=== PATIENT | male | born 1960 | race American Indian/Alaskan Native ===

== ENCOUNTER 2018-02-01 08:07 | Emergency (ER) | payer SELFPAY ==
[2018-02-01 08:57] VITALS: BP 128/89
[2018-02-01] MEDS ORDERED: TORADOL IM ONE (09:59)
--- NOTE | 2018-02-01 10:04 | Emergency Department Report ---
ED ENT HPI - General Chief complaint: Dental/Oral Stated complaint: RT SIDE TOOTH PAIN Time Seen by Provider: 02/01/18 09:53 Source: patient Mode of arrival: Ambulatory Limitations: No Limitations - History of Present Illness Initial comments: This is a 57-year-old -[place] male who presents with a broken tooth that is causing pain in right side facial swelling for 3 days. Patient states his tooth on the right upper side broke 7 years ago and is now causing pain. Patient reports pain is 10 out of 10 on pain scale and worse with eating or cold air. Patient reports pain is constant throbbing sensation. He is currently taking ibuprofen and applied oragel with no improvement in symptoms. He denies difficulty swallowing, tongue swelling, drooling, fever, and chest pain. MD complaint: tooth pain Onset/Timin -: days(s) Location: tooth # (#2) Severity: severe (#2) Severity scale (0 -10): 10 Quality: constant, other (throbbing) Consistency: constant Improves with: none Worsens with: eating, other (cold air) Context- Dental: history of dental caries, poor dental care Associated Symptoms: gum swelling, toothache. denies: fever, cough, pain with swallowing, sore throat, tinnitus, hearing loss, discharge from ear, rhinorrhea - Related Data Previous Rx's Medication Instructions Recorded Last Taken Type Clindamycin [Clindamycin CAP] 300 mg PO Q8H #21 cap 02/01/18 Unknown Rx Naproxen [Naprosyn] 500 mg PO BID #14 tablet 02/01/18 Unknown Rx Allergies Allergy/AdvReac Type Severity Reaction Status Date / Time acetaminophen [From Percocet] Allergy Hives Verified 02/01/18 08:58 oxycodone [From Percocet] Allergy Hives Verified 02/01/18 08:58 ED Dental HPI - General Chief complaint: Dental/Oral Stated complaint: RT SIDE TOOTH PAIN Time Seen by Provider: 02/01/18 09:53 Source: patient Mode of arrival: Ambulatory Limitations: No Limitations - Related Data Previous Rx's Medication Instructions Recorded Last Taken Type Clindamycin [Clindamycin CAP] 300 mg PO Q8H #21 cap 02/01/18 Unknown Rx Naproxen [Naprosyn] 500 mg PO BID #14 tablet 02/01/18 Unknown Rx Allergies Allergy/AdvReac Type Severity Reaction Status Date / Time acetaminophen [From Percocet] Allergy Hives Verified 02/01/18 08:58 oxycodone [From Percocet] Allergy Hives Verified 02/01/18 08:58 ED Review of Systems ROS: Stated complaint: RT SIDE TOOTH PAIN Other details as noted in HPI Constitutional: denies: chills, fever ENT: dental pain, other (right sided facial pain). denies: ear pain, throat pain, hearing loss, epistaxis, congestion Respiratory: denies: cough, shortness of breath, wheezing Cardiovascular: denies: chest pain, palpitations Gastrointestinal: denies: abdominal pain, nausea, diarrhea Skin: denies: rash, lesions Neurological: denies: headache, weakness, paresthesias Psychiatric: denies: anxiety, depression ED Past Medical Hx - Past Medical History Previous Medical History?: No - Surgical History Past Surgical History?: No - Social History Smoking Status: Current Every Day Smoker Substance Use Type: Alcohol - Medications Home Medications: Home Medications Medication Instructions Recorded Confirmed Last Taken Type Clindamycin [Clindamycin CAP] 300 mg PO Q8H #21 cap 02/01/18 Unknown Rx Naproxen [Naprosyn] 500 mg PO BID #14 tablet 02/01/18 Unknown Rx ED Physical Exam - General Limitations: No Limitations General appearance: alert, in no apparent distress - ENT ENT exam: Present: mucous membranes moist, other (dental caries and partial avulsion of #2, surrounded mucosal swelling, tenderness) - Neck Neck exam: Present: normal inspection - Respiratory Respiratory exam: Present: normal lung sounds bilaterally. Absent: respiratory distress - Cardiovascular Cardiovascular Exam: Present: regular rate, normal rhythm. Absent: systolic murmur, diastolic murmur, rubs, gallop - GI/Abdominal GI/Abdominal exam: Present: soft, normal bowel sounds - Neurological Exam Neurological exam: Present: alert, oriented X3 - Psychiatric Psychiatric exam: Present: normal affect, normal mood - Skin Skin exam: Present: warm, dry, intact, normal color, other (right sided facial swelling). Absent: rash ED Course Vital Signs 02/01/18 08:53 Temperature 99.5 F Pulse Rate 98 H Respiratory 18 Rate Blood Pressure 128/89 O2 Sat by Pulse 98 Oximetry ED Medical Decision Making - Medical Decision Making This is a 57-year-old male that presents with toothache and right side facial swelling for 3 days. Patient is stable and was examined by me. Given Toradol 30 mg IM once in ER. Susceptible of dental caries with avulsion to #2. Start clindamycin and naproxen. Referral to emergency dental for continuous care. Discussed plan with patient. He agreed with ER plan. Follow up with dentist in 24-48 hours. Critical care attestation.: If time is entered above; I have spent that time in minutes in the direct care of this critically ill patient, excluding procedure time. ED Disposition Clinical Impression: Dental caries, Toothache Avulsion fracture of tooth Qualifiers: Encounter type: initial encounter Fracture type: open Qualified Code(s): S02.5XXB - Fracture of tooth (traumatic), initial encounter for open fracture Disposition: TO HOME OR SELFCARE Is pt being admited?: No Does the pt Need Aspirin: No Condition: Stable Instructions: Toothache (ED), Acute dental trauma (ED) Additional Instructions: Complete all days of clindamycin as prescribed for 14 days. Avoid drinking alcohol while taking antibiotics and for up to 24 hours of completion. Follow up with Dentist in 24-72 hours. Prescriptions: Clindamycin [Clindamycin CAP] 300 mg PO Q8H #21 cap Naproxen [Naprosyn] 500 mg PO BID #14 tablet Referrals: [facility] [Outside] - 3-5 Days [facility] [Outside] - 3-5 Days [facility] [Outside] - 3-5 Days Forms: Work/School Release Form(ED) Time of Disposition: 10:11 Print Language: PRYDEINIG
== END 2018-02-01 10:37 | disposition home or self-care (01) ==
LOC: ED 08:07
DX: S02.5XXB Fracture of tooth (traumatic), initial encounter for open fracture (principal); K02.9 Dental caries, unspecified; F17.200 Nicotine dependence, unspecified, uncomplicated; Z88.6 Allergy status to analgesic agent; Z88.5 Allergy status to narcotic agent; X58.XXXA Exposure to other specified factors, initial encounter; Y93.89 Activity, other specified; Y92.89 Other specified places as the place of occurrence of the external cause; Y99.8 Other external cause status
CPT/HCPCS: 96372; 99282; J1885

== ENCOUNTER 2018-05-16 15:04 | Inpatient (IN) | payer OTHER, SELFPAY ==
[2018-05-16] MEDS ORDERED: NACL 0.9% 1000 ML 1,000 ML IV ONE (15:18)
[2018-05-16 15:59] LABS: INR 0.89 (0.87-1.13)
[2018-05-16 16:00] LABS: Partial Thromboplastin Time 25.4 Sec. (24.2-36.6)
[2018-05-16 16:07] LABS: Alanine Aminotransferase 14 units/L (7-56); Albumin 3.6 g/dL (3.9-5); BUN/Creatinine Ratio 21; Blood Urea Nitrogen 15 mg/dL (9-20); Hemolysis Index 4
[2018-05-16 16:09] LABS: Hematocrit 35.9 % (35.5-45.6); Hemoglobin 12.1 gm/dl (11.8-15.2); Mean Corpuscular HGB Conc 34 % (32-34); Mean Corpuscular Volume 95 fl (84-94); Platelet Count 141 K/mm3 (140-440); Red Blood Count 3.79 M/mm3 (3.65-5.03); Red Cell Distribution Width 15.2 % (13.2-15.2)
[2018-05-16 17:02] LABS: Band Neutrophils # (Manual) 0.5 K/mm3; Basophils % (Manual) 0 % (0.0-1.8); Eosinophils % (Manual) 0 % (0.0-4.3); Total Cells Counted 100
[2018-05-16 17:48] LABS: Anisocytosis 1+; Hypochromasia 1+; Platelet Estimate Appears Decreased
[2018-05-16 17:49] LABS: Stomatocytes Few
[2018-05-16] MEDS ORDERED: TYLENOL PO ONE (21:23)
--- NOTE | 2018-05-16 21:28 | Emergency Department Report ---
ED Chest Pain HPI - General Chief Complaint: GI Bleed Stated Complaint: BLEEDING FROM THROAT Time Seen by Provider: 05/16/18 21:08 Source: patient Mode of arrival: Ambulatory Limitations: No Limitations - History of Present Illness Initial Comments: 57-year-old male presents to ED with complaint of left-sided chest pain and hemoptysis. Patient states symptoms began 4 days ago. Also reports fever as well. Reports pleuritic left-sided chest pain. Reports cough that is productive of clear sputum with streaks of blood in it. PCP: none MD Complaint: chest pain -: days(s) (4) Onset: during rest Pain Location: left chest Pain Radiation: none Severity: mild Quality: sharp Consistency: intermittent Improves With: nothing Worsens With: inspiration re: denies: nausea, vomting, dyspnea Other Symptoms: cough, fever. denies: leg swelling - Related Data Previous Rx's Medication Instructions Recorded Last Taken Type Clindamycin [Clindamycin CAP] 300 mg PO Q8H #21 cap 02/01/18 Unknown Rx Amoxicillin/Potassium Clav 1 each PO BID #14 tablet 04/11/18 Unknown Rx [Augmentin 500-125 Tablet] Fluticasone [Flonase] 1 spray NS QDAY #1 bottle 04/11/18 Unknown Rx Naproxen [Naprosyn] 500 mg PO BID #14 tablet 04/11/18 Unknown Rx Allergies Allergy/AdvReac Type Severity Reaction Status Date / Time oxycodone [From Percocet] Allergy Hives Verified 04/11/18 09:57 Heart Score - HEART Score History: Slightly suspicious EKG: Normal Age: 45-65 Risk factors: No known risk factors Troponin: < normal limit HEART Score: 1 ED Review of Systems ROS: Stated complaint: BLEEDING FROM THROAT Other details as noted in HPI Comment: All other systems reviewed and negative Constitutional: fever Respiratory: cough, other (reports hemoptysis) Cardiovascular: chest pain Gastrointestinal: denies: nausea, vomiting Musculoskeletal: other (denies leg pain or swelling) ED Past Medical Hx - Past Medical History Previous Medical History?: No - Surgical History Past Surgical History?: No - Social History Smoking Status: Never Smoker Substance Use Type: None - Medications Home Medications: Home Medications Medication Instructions Recorded Confirmed Last Taken Type Clindamycin [Clindamycin CAP] 300 mg PO Q8H #21 cap 02/01/18 Unknown Rx Amoxicillin/Potassium Clav 1 each PO BID #14 tablet 04/11/18 Unknown Rx [Augmentin 500-125 Tablet] Fluticasone [Flonase] 1 spray NS QDAY #1 bottle 04/11/18 Unknown Rx Naproxen [Naprosyn] 500 mg PO BID #14 tablet 04/11/18 Unknown Rx ED Physical Exam - General Limitations: No Limitations General appearance: alert, in no apparent distress - Head Head exam: Present: atraumatic, normocephalic - Eye Eye exam: Present: normal appearance - ENT ENT exam: Present: mucous membranes moist - Neck Neck exam: Present: normal inspection - Respiratory Respiratory exam: Present: rales (left lung base). Absent: respiratory distress - Cardiovascular Cardiovascular Exam: Present: regular rate, normal rhythm - GI/Abdominal GI/Abdominal exam: Present: soft. Absent: distended, tenderness - Extremities Exam Extremities exam: Absent: pedal edema, calf tenderness - Neurological Exam Neurological exam: Present: alert, oriented X3 - Psychiatric Psychiatric exam: Present: normal affect, normal mood - Skin Skin exam: Present: warm, dry, intact, normal color. Absent: rash ED Course Vital Signs 05/16/18 05/16/18 05/16/18 15:12 22:00 23:37 Temperature 101.3 F H 100.1 F H Pulse Rate 99 H 72 78 Respiratory 18 18 18 Rate Blood Pressure 144/89 Blood Pressure 142/84 122/78 [Left] O2 Sat by Pulse 100 98 99 Oximetry ED Medical Decision Making - Lab Data Result diagrams: 05/16/18 15:29 05/16/18 15:29 - EKG Data -: EKG Interpreted by [facility] EKG shows normal: sinus rhythm, axis, intervals, QRS complexes, ST-T waves Rate: normal - EKG Data Interpretation: no acute changes - Radiology Data Radiology results: report reviewed, image reviewed - Medical Decision Making 57-year-old male with left lower lobe pneumonia on chest x-ray. She had a fever of 101 here in ED, O2 sats normal, blood pressure normal. Patient reports hemoptysis and pleuritic chest pain. Pain meds given, blood cultures drawn and Rocephin and azithromycin administered. Spoke with Dr. Greer, hospitalist, will admit the patient. - Differential Diagnosis pneumonia, PE, pneumothorax Critical care attestation.: If time is entered above; I have spent that time in minutes in the direct care of this critically ill patient, excluding procedure time. ED Disposition Clinical Impression: Pneumonia, Hemoptysis Disposition: 09 OP ADMIT IP TO THIS HOSP Is pt being admited?: Yes Condition: Stable Time of Disposition: 22:15
--- NOTE | 2018-05-16 21:59 | XRay Report ---
FINAL REPORT PROCEDURE: XR CHEST ROUTINE 2V TECHNIQUE: PA and lateral chest radiographs were obtained. CPT 92717 HISTORY: cough COMPARISON: No prior studies are available for comparison. FINDINGS: Heart: Normal. Mediastinum/Vessels: Normal. Lungs/Pleural space: There is evidence of consolidation involving the left lower lobe. Right lung and right pleural space are clear. There is mild degree left pleural effusion.. Bony thorax: No acute osseous abnormality. Other: IMPRESSION: Pneumonia left lower lobe with minimal left pleural effusion..
[2018-05-16] MEDS ORDERED: ROCEPHIN/NS 1 GM/50 ML 1 GM/50 ML BAG IV ONE (22:01)
[2018-05-16] MEDS ORDERED: TORADOL IV ONE (22:02)
[2018-05-16] MEDS ORDERED: ZITHROMAX PO ONE (22:02)
[2018-05-16] MEDS ORDERED: TYLENOL PO PRN (22:32)
[2018-05-16] MEDS ORDERED: PERCOCET 5/325 PO PRN (22:32)
[2018-05-16] MEDS ORDERED: ZOFRAN IV PRN (22:32)
[2018-05-16] MEDS ORDERED: SODIUM CHLORIDE FLUSH SYRINGE 10 ML IV PRN (22:32)
--- NOTE | 2018-05-16 22:40 | History and Physical Report ---
History of Present Illness Date of examination: 05/16/18 History of present illness: 58-year-old man with no medical problems comes emergency room complaining of left side pleuritic chest pain. He also complained of a cough productive of white phlegm intermixed with blood, chills. No weight loss Review of systems Constitutional: no weight loss, fever Ears, eyes, nose, mouth and throat: no nasal congestion, no nasal discharge, no sinus pressure, no vision change, no red eye. Neck: No neck pain or rigidity. Cardiovascular: no palpitations, chest pain Respiratory:+ cough, shortness of breath Gastrointestinal: no hematochezia, abdominal pain Genitourinary : no frequency , no hematuria Musculoskeletal: no joint swelling or muscle ache Integumentary: no rash, no pruritis Neurological: no parathesias, no focal weakness Endocrine: no cold or heat intolerance, no polyuria or polydipsia Hematologic/Lymphatic: no easy bruising, no easy bleeding, no gland swelling Allergic/Immunologic: no urticaria, no angioedema. PAST MEDICAL HISTORY: None PAST SURGICAL HISTORY: None SOCIAL HISTORY: Denies alcohol, drugs,smoke 1/2 pack /day FAMILY HISTORY: Hypertension Medications and Allergies Allergies Allergy/AdvReac Type Severity Reaction Status Date / Time oxycodone [From Percocet] Allergy Hives Verified 04/11/18 09:57 Home Medications Medication Instructions Recorded Confirmed Last Taken Type Oseltamivir Phosphate [Tamiflu] 75 mg PO BID #4 capsule 05/20/18 Unknown Rx RX: Acetaminophen [Acetaminophen 650 mg PO Q4H PRN #15 tablet 05/20/18 Unknown Rx TAB] cefUROXime [Ceftin] 500 mg PO BID #10 tablet 05/20/18 Unknown Rx Exam - Physical Exam Narrative exam: General Apperance: The patient lying in bed, breathing comfortable HEENT: Normocephalic, atraumatic. Pupils equally round and reactive to light, EOMI, no sclericterus or JVD or thyromegaly or nodule. , no carotid bruit, mucous membranes moist, no exudate or erythema Heart: S1-S2, regular is rhythm Lungs: Crackles on the left, breathing comfortable Abdomen: Positive bowel sounds, soft, nontender, nondistended, no organomegaly Extremities: No edema cyanosis clubbing Skin: sacral and lower extremity ulcers, no rash, nodule, warm and dry Neuro: cranial nerves 2-12 intact, speech is fluent, motor/sensory intact - Constitutional Vitals: Temp Pulse Resp BP Pulse Ox 101.3 F H 72 18 142/84 98 05/16/18 15:12 05/16/18 22:00 05/16/18 22:00 05/16/18 22:00 05/16/18 22:00 Results - Labs CBC & Chem 7: 05/20/18 04:57 05/20/18 04:57 Labs: Abnormal lab results 05/16/18 05/16/18 Range/Units 15:29 15:29 MCV 95 H (84-94) fl Lymphocytes % (Manual) 12.0 L (13.4-35.0) % Monocytes % (Manual) 16.0 H (0.0-7.3) % Lymphocytes # (Manual) 0.8 L (1.2-5.4) K/mm3 Monocytes # (Manual) 1.1 H (0.0-0.8) K/mm3 Creatinine 0.7 L (0.8-1.5) mg/dL Albumin 3.6 L (3.9-5) g/dL - Imaging and Cardiology EKG: image reviewed Chest x-ray: image reviewed Assessment and Plan Assessment Community-acquired pneumonia Elevated blood pressure Plan Admit to medicine Start IV Levaquin, follow cultures Monitor blood pressure, start IV hydralazine as needed DVT prophylaxis
[2018-05-16] MEDS ORDERED: APRESOLINE IV PRN (22:44)
[2018-05-16] MEDS ORDERED: TORADOL ONE (23:15)
[2018-05-16] MEDS ORDERED: NACL 0.45% 1000 ML 1,000 ML IV ONE (23:15)
[2018-05-16] MEDS ORDERED: ZITHROMAX ONE (23:16)
[2018-05-16] MEDS: NACL 0.45% 1000 ML 1,000 ML IV SCH (23:36)
[2018-05-17 06:35] LABS: Hematocrit 36.8 % (35.5-45.6); Hemoglobin 12.1 gm/dl (11.8-15.2); Mean Corpuscular HGB Conc 33 % (32-34); Mean Corpuscular Volume 95 fl (84-94); Platelet Count 125 K/mm3 (140-440); Red Blood Count 3.89 M/mm3 (3.65-5.03)
[2018-05-17 06:57] LABS: BUN/Creatinine Ratio 19; Blood Urea Nitrogen 13 mg/dL (9-20); Calcium 8.2 mg/dL (8.4-10.2); Hemolysis Index 7
[2018-05-17] MEDS: SODIUM CHLORIDE FLUSH SYRINGE 10 ML IV SCH ×2 (09:37→22:05)
[2018-05-17] MEDS ORDERED: K-DUR PO NR (09:52)
--- NOTE | 2018-05-17 09:53 | Progress Note ---
Assessment and Plan Assessment and plan: 57-year-old man with no medical problems comes emergency room complaining of left side pleuritic chest pain. He also complained of a cough productive of white phlegm intermixed with blood, chills. No weight loss Community-acquired pneumonia Elevated blood pressure Left pleural effusion Sepsis Hemoptysis Atypical chest pain secondary to Pleurisy Plan Supportive Care Pain control Replace K Hycodan for cough suppression and pain control Continue IV Levaquin, follow cultures ID consult Monitor blood pressure, start IV hydralazine as needed DVT prophylaxis Plan discussed with the patient in detail - Patient Problems (1) Sepsis Current Visit: Yes Status: Acute (2) Hypokalemia Current Visit: Yes Status: Acute History Interval history: Patient seen and examined resting comfortable. still with pleuritic chest pain. Admitted with Pneumonia. No other adverse event reported Hospitalist Physical - Physical exam Narrative exam: General Apperance: The patient lying in bed, breathing comfortable HEENT: Normocephalic, atraumatic. Pupils equally round and reactive to light, EOMI, no sclericterus or JVD or thyromegaly or nodule. , no carotid bruit, mucous membranes moist, no exudate or erythema Heart: S1-S2, regular is rhythm Lungs: Crackles on the left, breathing comfortable Abdomen: Positive bowel sounds, soft, nontender, nondistended, no organomegaly Extremities: No edema cyanosis clubbing Skin: sacral and lower extremity ulcers, no rash, nodule, warm and dry. Tender to palpation mid chest Neuro: cranial nerves 2-12 intact, speech is fluent, motor/sensory intact - Constitutional Vitals: Temp Pulse Resp BP Pulse Ox 98.6 F 70 18 137/90 97 05/17/18 04:44 05/17/18 04:44 05/17/18 04:44 05/17/18 04:44 05/17/18 04:44 Results - Labs CBC & Chem 7: 05/17/18 06:07 05/17/18 06:07 Labs: Laboratory Last Values WBC 7.0 K/mm3 (4.5-11.0) 05/17/18 06:07 RBC 3.89 M/mm3 (3.65-5.03) 05/17/18 06:07 Hgb 12.1 gm/dl (11.8-15.2) 05/17/18 06:07 Hct 36.8 % (35.5-45.6) 05/17/18 06:07 MCV 95 fl (84-94) H 05/17/18 06:07 MCH 31 pg (28-32) 05/17/18 06:07 MCHC 33 % (32-34) 05/17/18 06:07 RDW 15.0 % (13.2-15.2) 05/17/18 06:07 Plt Count 125 K/mm3 (140-440) L 05/17/18 06:07 [place] % (Auto) Press Operator 05/17/18 06:07 Add Manual Diff Complete 05/16/18 15:29 Total Counted 100 05/16/18 15:29 Seg Neuts % (Manual) 64.0 % (40.0-70.0) 05/16/18 15:29 Band Neutrophils % 7.0 % 05/16/18 15:29 Lymphocytes % (Manual) 12.0 % (13.4-35.0) L 05/16/18 15:29 Reactive Lymphs % (Man) 1.0 % 05/16/18 15:29 Monocytes % (Manual) 16.0 % (0.0-7.3) H 05/16/18 15:29 Eosinophils % (Manual) 0 % (0.0-4.3) 05/16/18 15:29 Basophils % (Manual) 0 % (0.0-1.8) 05/16/18 15:29 Metamyelocytes % 0 % 05/16/18 15:29 Myelocytes % 0 % 05/16/18 15:29 Promyelocytes % 0 % 05/16/18 15:29 Blast Cells % 0 % 05/16/18 15:29 Nucleated RBC % Not Reportable 05/16/18 15:29 Seg Neutrophils # Man 4.5 K/mm3 (1.8-7.7) 05/16/18 15:29 Band Neutrophils # 0.5 K/mm3 05/16/18 15:29 Lymphocytes # (Manual) 0.8 K/mm3 (1.2-5.4) L 05/16/18 15:29 Abs React Lymphs (Man) 0.1 K/mm3 05/16/18 15:29 Monocytes # (Manual) 1.1 K/mm3 (0.0-0.8) H 05/16/18 15:29 Eosinophils # (Manual) 0.0 K/mm3 (0.0-0.4) 05/16/18 15:29 Basophils # (Manual) 0.0 K/mm3 (0.0-0.1) 05/16/18 15:29 Metamyelocytes # 0.0 K/mm3 05/16/18 15:29 Myelocytes # 0.0 K/mm3 05/16/18 15:29 Promyelocytes # 0.0 K/mm3 05/16/18 15:29 Blast Cells # 0.0 K/mm3 05/16/18 15:29 WBC Morphology Not Reportable 05/16/18 15:29 Hypersegmented Neuts Not Reportable 05/16/18 15:29 Hyposegmented Neuts Not Reportable 05/16/18 15:29 Hypogranular Neuts Not Reportable 05/16/18 15:29 Smudge Cells Not Reportable 05/16/18 15:29 Toxic Granulation Not Reportable 05/16/18 15:29 Toxic Vacuolation Not Reportable 05/16/18 15:29 Dohle Bodies Not Reportable 05/16/18 15:29 Pelger-Huet Anomaly Not Reportable 05/16/18 15:29 Matilda Rods Not Reportable 05/16/18 15:29 Platelet Estimate Appears decreased 05/16/18 15:29 Clumped Platelets Not Reportable 05/16/18 15:29 Plt Clumps, EDTA Not Reportable 05/16/18 15:29 Large Platelets Not Reportable 05/16/18 15:29 Giant Platelets Not Reportable 05/16/18 15:29 Platelet Satelliting Not Reportable 05/16/18 15:29 Plt Morphology Comment Not Reportable 05/16/18 15:29 RBC Morphology Not Reportable 05/16/18 15:29 Dimorphic RBCs Not Reportable 05/16/18 15:29 Polychromasia Not Reportable 05/16/18 15:29 Hypochromasia 1+ 05/16/18 15:29 Poikilocytosis Not Reportable 05/16/18 15:29 Anisocytosis 1+ 05/16/18 15:29 Microcytosis 1+ 05/16/18 15:29 Macrocytosis Not Reportable 05/16/18 15:29 Spherocytes Not Reportable 05/16/18 15:29 Pappenheimer Bodies Not Reportable 05/16/18 15:29 Sickle Cells Not Reportable 05/16/18 15:29 Target Cells Not Reportable 05/16/18 15:29 Tear Drop Cells Not Reportable 05/16/18 15:29 Ovalocytes Not Reportable 05/16/18 15:29 Stomatocytes Few 05/16/18 15:29 Helmet Cells Not Reportable 05/16/18 15:29 [place] Bodies Not Reportable 05/16/18 15:29 [place] Rings Not Reportable 05/16/18 15:29 [place] Cells Not Reportable 05/16/18 15:29 Bite Cells Not Reportable 05/16/18 15:29 Crenated Cell Not Reportable 05/16/18 15:29 Elliptocytes Not Reportable 05/16/18 15:29 Acanthocytes (Spur) Not Reportable 05/16/18 15:29 Rouleaux Not Reportable 05/16/18 15:29 Hemoglobin C Crystals Not Reportable 05/16/18 15:29 Schistocytes Not Reportable 05/16/18 15:29 Malaria parasites Not Reportable 05/16/18 15:29 Eliu Bodies Not Reportable 05/16/18 15:29 Hem Pathologist Commnt No 05/16/18 15:29 PT 12.4 Sec. (12.2-14.9) 05/16/18 15:29 INR 0.89 (0.87-1.13) 05/16/18 15:29 APTT 25.4 Sec. (24.2-36.6) 05/16/18 15:29 Sodium 135 mmol/L (137-145) L 05/17/18 06:07 Potassium 3.3 mmol/L (3.6-5.0) L D 05/17/18 06:07 Chloride 97.8 mmol/L (98-107) L 05/17/18 06:07 Carbon Dioxide 26 mmol/L (22-30) 05/17/18 06:07 Anion Gap 15 mmol/L 05/17/18 06:07 BUN 13 mg/dL (9-20) 05/17/18 06:07 Creatinine 0.7 mg/dL (0.8-1.5) L 05/17/18 06:07 Estimated GFR > 60 ml/min 05/17/18 06:07 BUN/Creatinine Ratio 19 % 05/17/18 06:07 Glucose 97 mg/dL (75-100) 05/17/18 06:07 Calcium 8.2 mg/dL (8.4-10.2) L 05/17/18 06:07 Total Bilirubin 0.70 mg/dL (0.1-1.2) 05/16/18 15:29 AST 20 units/L (5-40) 05/16/18 15:29 ALT 14 units/L (7-56) 05/16/18 15:29 Alkaline Phosphatase 66 units/L (35-129) 05/16/18 15:29 Total Protein 6.9 g/dL (6.3-8.2) 05/16/18 15:29 Albumin 3.6 g/dL (3.9-5) L 05/16/18 15:29 Albumin/Globulin Ratio 1.1 % 05/16/18 15:29 Lipase 28 units/L (13-60) 05/16/18 15:29 Blood Type O POSITIVE 05/16/18 15:29 Antibody Screen Negative 05/16/18 15:29 - Imaging and Cardiology Chest x-ray: image reviewed (lower lobe infiltrates of the left)
[2018-05-17] MEDS ORDERED: LEVAQUIN 750MG/150ML 750 MG/150 ML BAG IV SCH (10:00)
[2018-05-17 10:33] LABS: Band Neutrophils # (Manual) 0.3 K/mm3; Basophils % (Manual) 0 % (0.0-1.8); Eosinophils % (Manual) 0 % (0.0-4.3); Total Cells Counted 100
[2018-05-17 10:34] LABS: Hypochromasia 1+
[2018-05-17 10:35] LABS: Platelet Estimate Consistent w Auto
--- NOTE | 2018-05-17 10:44 | Consultation ---
History of Present Illness - Reason for Consult Consult date: 05/17/18 Sepsis Requesting physician: RISHI RIOS - History of Present Illness This patient is a 57 year old male with a history of Nicotine dependence and no significant past medical history presents in the ER on 05/16/18 with complaints of left side pleuritic chest pain and productive cough productive of white phelgm and blood. He also complains of chill with no significant weight loss. On adm ission WBC 7.0, Creatinine 0.7, Highest temperature 101.3,, HR 115, BP 128/89, Blood cultures were drawn and are pending. Chest xray is consistent with pneumonia left lower lobe with minimal left pleural effusion. 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 He states this past Monday he started having GI upset with accompanying nausea and diarrhea,. He initially attributed his symptoms to ingesting multiple buffalo wings the night before, so he treated himself with OTC medications. The next day symptoms persisted with left sided chest pain, chills and hemoptysis. He admits to tobacco dep endence for 30+ years. He denies illegal drug or alcohol abuse. He is recently and tested negative for HIV 10 years ago. Review of Systems: General: no fever, chills, unintentional weight change, or change in appetite +nightsweats, Cutaneous: no rash, pruritus Head: no headaches or injury Eyes: no changes in vision, eye pain, double vision Ears: no ear pain, ear discharge, ringing or hearing loss Nose: no nose bleeding, stuffiness Mouth & throat: no bleeding gums, no horseness, no dental problems, or swollen glands Neck: no pain, node enlargement/lumps, tyroid enlargement or tenderness Respiratory: + cough, hemoptysis, pleuritic chest pain Cardiovascular: + left side chest pain, no leg edema, cyanosis, ESTRELLA, orthopnea Musculoskeletal: no decreased joint motion, bone or joint pain, joint swelling, muscle aches Gastrointestinal: no nausea, vomiting, + ,diarrhea, melena, times 4 days Genitourinary/Reproductive: frequent urination, no dysuria, hematuria, incontinence Neurogical: no seizures, no headaches, no weakness, no paresthesias, no loss of speech or vision Psychiatric: stable mood; no excessive anxiety, sadness or moodiness Medications and Allergies Allergies Allergy/AdvReac Type Severity Reaction Status Date / Time oxycodone [From Percocet] Allergy Hives Verified 04/11/18 09:57 Home Medications Medication Instructions Recorded Confirmed Last Taken Type Clindamycin [Clindamycin CAP] 300 mg PO Q8H #21 cap 02/01/18 Unknown Rx Amoxicillin/Potassium Clav 1 each PO BID #14 tablet 04/11/18 Unknown Rx [Augmentin 500-125 Tablet] Fluticasone [Flonase] 1 spray NS QDAY #1 bottle 04/11/18 Unknown Rx Naproxen [Naprosyn] 500 mg PO BID #14 tablet 04/11/18 Unknown Rx Active Meds: Active Medications Acetaminophen (Tylenol) 650 mg PO Q4H PRN PRN Reason: Pain MILD(1-3)/Fever >100.5/JULIEN Hydralazine HCl (Apresoline) 5 mg IV Q6H PRN PRN Reason: Hypertension Sodium Chloride (Nacl 0.45% 1000 Ml) 1,000 mls @ 75 mls/hr IV DIRECT [facility] Last Admin: 05/16/18 23:36 Dose: 75 mls/hr Documented by: Levofloxacin/Dextrose (Levaquin 750mg/150ml) 750 mg in 150 mls @ 100 mls/hr IV DAILY [facility] Last Admin: 05/17/18 09:36 Dose: 100 mls/hr Documented by: Ondansetron HCl (Zofran) 4 mg IV Q8H PRN PRN Reason: Nausea And Vomiting Potassium Chloride (K-Dur) 40 meq PO ONCE NR Stop: 05/17/18 11:00 Sodium Chloride (Sodium Chloride Flush Syringe 10 Ml) 10 ml IV BID [facility] Last Admin: 05/17/18 09:37 Dose: 10 ml Documented by: Sodium Chloride (Sodium Chloride Flush Syringe 10 Ml) 10 ml IV PRN PRN PRN Reason: LINE FLUSH Physical Examination - Physical Exam Narrative exam: Constitutional: Alert, cooperative. No acute distress Head, Ears, Nose: Normocephalic, atraumatic. External ears, nose normal Eyes: Conjunctivae/corneas clear. No icterus. No ptosis. Neck: Supple, no meningeal signs Oral: dentition good no thrush Cardiovascular: S1, S2 normal. Respiratory: Good air entry, clear to auscultation, diminished at left base GI: Soft, non-tender; bowel sounds normal. No peritoneal signs Gu: no CVA tenderness Musculoskeletal: No pedal edema, no cyanosis. Skin: No rash or abscess. or ulcerations, + Excoriation on back, Dry skin Hem/Lymphatic: No palpable cervical or supraclavicular nodes. No lymphangitis Psych: Mood ok. Affect normal Neurological: Awake, alert, oriented. - Constitutional Vitals: Vital Signs Temp Pulse Resp BP Pulse Ox 98.6 F 70 18 137/90 97 05/17/18 04:44 05/17/18 04:44 05/17/18 04:44 05/17/18 04:44 05/17/18 04:44 Temperature -Last 24 Hours Temperature 98.6 F Temperature 99.1 F Temperature 100.1 F Temperature 101.3 F Results - Labs CBC & Chem 7: 05/17/18 06:07 05/17/18 06:07 Labs: Abnormal lab results 05/16/18 05/16/18 05/17/18 Range/Units 15:29 15:29 06:07 MCV 95 H 95 H (84-94) fl Plt Count 125 L (140-440) K/mm3 Seg Neuts % (Manual) 73.0 H (40.0-70.0) % Lymphocytes % (Manual) 12.0 L 7.0 L (13.4-35.0) % Monocytes % (Manual) 16.0 H 16.0 H (0.0-7.3) % Lymphocytes # (Manual) 0.8 L 0.5 L (1.2-5.4) K/mm3 Monocytes # (Manual) 1.1 H 1.1 H (0.0-0.8) K/mm3 Sodium (137-145) mmol/L Potassium (3.6-5.0) mmol/L Chloride (98-107) mmol/L Creatinine 0.7 L (0.8-1.5) mg/dL Calcium (8.4-10.2) mg/dL Albumin 3.6 L (3.9-5) g/dL 05/17/18 Range/Units 06:07 MCV (84-94) fl Plt Count (140-440) K/mm3 Seg Neuts % (Manual) (40.0-70.0) % Lymphocytes % (Manual) (13.4-35.0) % Monocytes % (Manual) (0.0-7.3) % Lymphocytes # (Manual) (1.2-5.4) K/mm3 Monocytes # (Manual) (0.0-0.8) K/mm3 Sodium 135 L (137-145) mmol/L Potassium 3.3 L D (3.6-5.0) mmol/L Chloride 97.8 L (98-107) mmol/L Creatinine 0.7 L (0.8-1.5) mg/dL Calcium 8.2 L (8.4-10.2) mg/dL Albumin (3.9-5) g/dL Assessment and Plan Imagin05/16/2018 Chest Xray; Pneumonia left lower lobe with minimal left pleural effusion Cultures: 05/16/2018 Blood: In progress A/P: 57-year-old man with no significant past medical history, admitted with: 1. Sepsis - on admission, evidenced by temperature and tacycardia, Etiology most likely left lower lobe pneumonia, +/- Influenza, no luekocytosis Blood cultures are in progress. Currently being treated with Levofloxacin and Azithromycin. CRP 15.4, 2. Community Acquired Pneumonia- chest xray consistent with left lower lobe pneumonia with minimal left pleural effusion. Hemoptysis on admission. Sputum cultures ordered. 3. Nicotine Dependence-Counselled on nicotine cessation. 4. Diarrhea - reports 2 loose dark stools today. If diarrhea persists will order stool and C-diff cultures. Monitor closely. Plan: -f/u blood cultures -order influenza Rapid and PCR -Order sputum culture -start Cetriaxone and vancomycin -continue azithromycin -discontinue levofloxacin -start tamiflu until Influenza PCR results D/W Dr. Neftali Gabriel, [employer] [facility] M: [id number] O:[phone]
[2018-05-17] MEDS: NACL 0.45% 1000 ML 1,000 ML IV SCH (14:48)
[2018-05-17] MEDS ORDERED: VANCOMYCIN PHARMACY TO DOSE IV SCH (16:00)
[2018-05-17] MEDS ORDERED: HYDROMET PO PRN (16:20)
[2018-05-17] MEDS ORDERED: VANCOMYCIN 1,500 MG in NACL 0.9% 500 ML 500 ML IV ONE (17:00)
[2018-05-17] MEDS: ROCEPHIN/NS 2 GM/100 ML 2 GM/100 ML BAG IV SCH (17:43)
[2018-05-17] MEDS: ZITHROMAX PO SCH (17:43)
[2018-05-17] MEDS: TAMIFLU PO SCH ×2 (17:43→22:05)
[2018-05-18] MEDS: NACL 0.45% 1000 ML 1,000 ML IV SCH ×2 (03:40→20:22)
[2018-05-18] MEDS: VANCOMYCIN/NS 1 GM/250 ML 1 GM/250 ML BAG IV SCH ×3 (03:46→20:17)
[2018-05-18 05:07] LABS: Hematocrit 35.2 % (35.5-45.6); Hemoglobin 11.7 gm/dl (11.8-15.2); Mean Corpuscular HGB Conc 33 % (32-34); Mean Corpuscular Volume 95 fl (84-94); Platelet Count 169 K/mm3 (140-440); Red Blood Count 3.71 M/mm3 (3.65-5.03); Red Cell Distribution Width 15.1 % (13.2-15.2)
[2018-05-18 05:27] LABS: BUN/Creatinine Ratio 14; Blood Urea Nitrogen 10 mg/dL (9-20); Calcium 8.3 mg/dL (8.4-10.2); Hemolysis Index 9
[2018-05-18] MEDS: ROCEPHIN/NS 2 GM/100 ML 2 GM/100 ML BAG IV SCH (09:38)
[2018-05-18] MEDS: ZITHROMAX PO SCH (09:38)
[2018-05-18] MEDS: TAMIFLU PO SCH ×2 (09:38→22:07)
[2018-05-18] MEDS: SODIUM CHLORIDE FLUSH SYRINGE 10 ML IV SCH ×2 (10:00→22:07)
--- NOTE | 2018-05-18 14:52 | Progress Note ---
Assessment and Plan Imagin05/16/2018 Chest Xray; Pneumonia left lower lobe with minimal left pleural effusion Cultures: 05/16/2018 Blood: In progress A/P: 57-year-old man with no significant past medical history, admitted with: 1. Sepsis - on admission, evidenced by temperature and tacycardia, Etiology most likely left lower lobe pneumonia, +/- Influenza, no luekocytosis Blood cul tures are in progress. Currently being treated with Levofloxacin and Azithromycin. CRP 15.4, 2. Community Acquired Pneumonia- chest xray consistent with left lower lobe pneu monia with minimal left pleural effusion. Hemoptysis on admission. Sputum cultures ordered. 3. Nicotine Dependence-Counselled on nicotine cessation. 4. Diarrhea - reports 2 loose dark stools today. If diarrhea persists will order stool and C-diff cultures. Monitor closely. Plan: -f/u blood cultures -f/u influenza Rapid and PCR -f/u sputum culture -continue Cetriaxone and vancomycin -continue azithromycin -discontinue levofloxacin -continue tamiflu until Influenza PCR results Dr. Lindsay will be taking call from home on Monday, , making rounds in the hospital on Monday. Marisol Gabriel NP [facility] M: [id number] O:[phone] Subjective Date of service: 05/18/18 Interval history: Patient seen and examined. Denied SOB, rashes, nausea or vomiting. Low grade fever. Stated he was feelling better today, less coughing. Objective - Exam Narrative Exam: Constitutional: Alert, cooperative. No acute distress Head, Ears, Nose: Normocephalic, atraumatic. External ears, nose normal Eyes: Conjunctivae/corneas clear. No icterus. No ptosis. Neck: Supple, no meningeal signs Oral: dentition good no thrush Cardiovascular: S1, S2 normal. Respiratory: Good air entry, clear to auscultation, diminished at left base, + cough GI: Soft, non-tender; bowel sounds normal. No peritoneal signs Gu: no CVA tenderness Musculoskeletal: No pedal edema, no cyanosis. Skin: No rash or abscess. or ulcerations, + Excoriation on back, Dry skin Hem/Lymphatic: No palpable cervical or supraclavicular nodes. No lymphangitis Psych: Mood ok. Affect normal Neurological: Awake, alert, oriented. - Constitutional Vitals: Vital Signs Temp Pulse Resp BP Pulse Ox 98.1 F 70 20 125/81 97 05/18/18 11:05 05/18/18 11:05 05/18/18 11:05 05/18/18 11:05 05/18/18 11:05 Temperature -Last 24 Hours Temperature 98.1 F Temperature 98.6 F Temperature 98.7 F Temperature 100.3 F - Labs CBC & Chem 7: 05/18/18 04:17 05/18/18 04:17 Labs: Abnormal lab results 05/18/18 05/18/18 Range/Units 04:17 04:17 Hgb 11.7 L (11.8-15.2) gm/dl Hct 35.2 L (35.5-45.6) % MCV 95 H (84-94) fl Potassium 3.5 L (3.6-5.0) mmol/L Creatinine 0.7 L (0.8-1.5) mg/dL Glucose 118 H (75-100) mg/dL Calcium 8.3 L (8.4-10.2) mg/dL
--- NOTE | 2018-05-18 20:35 | Progress Note ---
Assessment and Plan Assessment and plan: 57-year-old man with no medical problems comes emergency room complaining of left side pleuritic chest pain. He also complained of a cough productive of white phlegm intermixed with blood, chills. No weight loss. Patinet is clincally improviong and stability o this patintente Community-acquired pneumonia Elevated blood pressure Left pleural effusion Sepsis Hemoptysis Atypical chest pain secondary to Pleurisy Plan Supportive Care Pain control continue iv abx Hycodan for cough suppression and D consult Monitor blood pressure, start IV hydralazine as needed DVT prophylaxis Plan discussed with the patient in detail - Patient Problems (1) Sepsis Current Visit: Yes Status: Acute (2) Hypokalemia Current Visit: Yes Status: Acute History Interval history: Patient seen and examined resting comfortable. Patient was admitted with chest pain, respiratory failue. Hospitalist Physical - Physical exam Narrative exam: General Apperance: The patient lying in bed, breathing comfortable HEENT: Normocephalic, atraumatic. Pupils equally round and reactive to light, EOMI, no sclericterus or JVD or thyromegaly or nodule. , no carotid bruit, mucous membranes moist, no exudate or erythema Heart: S1-S2, regular is rhythm Lungs: Crackles on the left, breathing comfortable Abdomen: Positive bowel sounds, soft, nontender, nondistended, no organomegaly Extremities: No edema cyanosis clubbing Skin: sacral and lower extremity ulcers, no rash, nodule, warm and dry. Tender to palpation mid chest Neuro: cranial nerves 2-12 intact, speech is fluent, motor/sensory intact - Constitutional Vitals: Temp Pulse Resp BP Pulse Ox 100.2 F H 80 20 126/82 97 05/18/18 17:04 05/18/18 17:04 05/18/18 17:04 05/18/18 17:04 05/18/18 17:04 Results - Labs CBC & Chem 7: 05/18/18 04:17 05/18/18 04:17 Labs: Laboratory Last Values WBC 6.1 K/mm3 (4.5-11.0) 05/18/18 04:17 RBC 3.71 M/mm3 (3.65-5.03) 05/18/18 04:17 Hgb 11.7 gm/dl (11.8-15.2) L 05/18/18 04:17 Hct 35.2 % (35.5-45.6) L 05/18/18 04:17 MCV 95 fl (84-94) H 05/18/18 04:17 MCH 31 pg (28-32) 05/18/18 04:17 MCHC 33 % (32-34) 05/18/18 04:17 RDW 15.1 % (13.2-15.2) 05/18/18 04:17 Plt Count 169 K/mm3 (140-440) 05/18/18 04:17 [place] % (Auto) [place] 05/17/18 06:07 Add Manual Diff Complete 05/17/18 06:07 Total Counted 100 05/17/18 06:07 Seg Neuts % (Manual) 73.0 % (40.0-70.0) H 05/17/18 06:07 Band Neutrophils % 4.0 % 05/17/18 06:07 Lymphocytes % (Manual) 7.0 % (13.4-35.0) L 05/17/18 06:07 Reactive Lymphs % (Man) 0 % 05/17/18 06:07 Monocytes % (Manual) 16.0 % (0.0-7.3) H 05/17/18 06:07 Eosinophils % (Manual) 0 % (0.0-4.3) 05/17/18 06:07 Basophils % (Manual) 0 % (0.0-1.8) 05/17/18 06:07 Metamyelocytes % 0 % 05/17/18 06:07 Myelocytes % 0 % 05/17/18 06:07 Promyelocytes % 0 % 05/17/18 06:07 Blast Cells % 0 % 05/17/18 06:07 Nucleated RBC % Not Reportable 05/17/18 06:07 Seg Neutrophils # Man 5.1 K/mm3 (1.8-7.7) 05/17/18 06:07 Band Neutrophils # 0.3 K/mm3 05/17/18 06:07 Lymphocytes # (Manual) 0.5 K/mm3 (1.2-5.4) L 05/17/18 06:07 Abs React Lymphs (Man) 0.0 K/mm3 05/17/18 06:07 Monocytes # (Manual) 1.1 K/mm3 (0.0-0.8) H 05/17/18 06:07 Eosinophils # (Manual) 0.0 K/mm3 (0.0-0.4) 05/17/18 06:07 Basophils # (Manual) 0.0 K/mm3 (0.0-0.1) 05/17/18 06:07 Metamyelocytes # 0.0 K/mm3 05/17/18 06:07 Myelocytes # 0.0 K/mm3 05/17/18 06:07 Promyelocytes # 0.0 K/mm3 05/17/18 06:07 Blast Cells # 0.0 K/mm3 05/17/18 06:07 WBC Morphology Not Reportable 05/17/18 06:07 Hypersegmented Neuts Not Reportable 05/17/18 06:07 Hyposegmented Neuts Not Reportable 05/17/18 06:07 Hypogranular Neuts Not Reportable 05/17/18 06:07 Smudge Cells Not Reportable 05/17/18 06:07 Toxic Granulation Not Reportable 05/17/18 06:07 Toxic Vacuolation Not Reportable 05/17/18 06:07 Dohle Bodies Not Reportable 05/17/18 06:07 Pelger-Huet Anomaly Not Reportable 05/17/18 06:07 Matilda Rods Not Reportable 05/17/18 06:07 Platelet Estimate Consistent w auto 05/17/18 06:07 Clumped Platelets Not Reportable 05/17/18 06:07 Plt Clumps, EDTA Not Reportable 05/17/18 06:07 Large Platelets Not Reportable 05/17/18 06:07 Giant Platelets Not Reportable 05/17/18 06:07 Platelet Satelliting Not Reportable 05/17/18 06:07 Plt Morphology Comment Not Reportable 05/17/18 06:07 RBC Morphology Not Reportable 05/17/18 06:07 Dimorphic RBCs Not Reportable 05/17/18 06:07 Polychromasia Not Reportable 05/17/18 06:07 Hypochromasia 1+ 05/17/18 06:07 Poikilocytosis Not Reportable 05/17/18 06:07 Anisocytosis Not Reportable 05/17/18 06:07 Microcytosis Not Reportable 05/17/18 06:07 Macrocytosis Not Reportable 05/17/18 06:07 Spherocytes Not Reportable 05/17/18 06:07 Pappenheimer Bodies Not Reportable 05/17/18 06:07 Sickle Cells Not Reportable 05/17/18 06:07 Target Cells Not Reportable 05/17/18 06:07 Tear Drop Cells Not Reportable 05/17/18 06:07 Ovalocytes Not Reportable 05/17/18 06:07 Stomatocytes Few 05/16/18 15:29 Helmet Cells Not Reportable 05/17/18 06:07 [place] Bodies Not Reportable 05/17/18 06:07 [place] Rings Not Reportable 05/17/18 06:07 [place] Cells Not Reportable 05/17/18 06:07 Bite Cells Not Reportable 05/17/18 06:07 Crenated Cell Not Reportable 05/17/18 06:07 Elliptocytes Not Reportable 05/17/18 06:07 Acanthocytes (Spur) Not Reportable 05/17/18 06:07 Rouleaux Not Reportable 05/17/18 06:07 Hemoglobin C Crystals Not Reportable 05/17/18 06:07 Schistocytes Not Reportable 05/17/18 06:07 Malaria parasites Not Reportable 05/17/18 06:07 Eliu Bodies Not Reportable 05/17/18 06:07 Hem Pathologist Commnt No 05/17/18 06:07 PT 12.4 Sec. (12.2-14.9) 05/16/18 15:29 INR 0.89 (0.87-1.13) 05/16/18 15:29 APTT 25.4 Sec. (24.2-36.6) 05/16/18 15:29 Sodium 140 mmol/L (137-145) 05/18/18 04:17 Potassium 3.5 mmol/L (3.6-5.0) L 05/18/18 04:17 Chloride 101.7 mmol/L (98-107) 05/18/18 04:17 Carbon Dioxide 25 mmol/L (22-30) 05/18/18 04:17 Anion Gap 17 mmol/L 05/18/18 04:17 BUN 10 mg/dL (9-20) 05/18/18 04:17 Creatinine 0.7 mg/dL (0.8-1.5) L 05/18/18 04:17 Estimated GFR > 60 ml/min 05/18/18 04:17 BUN/Creatinine Ratio 14 % 05/18/18 04:17 Glucose 118 mg/dL (75-100) H 05/18/18 04:17 Calcium 8.3 mg/dL (8.4-10.2) L 05/18/18 04:17 Total Bilirubin 0.70 mg/dL (0.1-1.2) 05/16/18 15:29 AST 20 units/L (5-40) 05/16/18 15:29 ALT 14 units/L (7-56) 05/16/18 15:29 Alkaline Phosphatase 66 units/L (35-129) 05/16/18 15:29 C-Reactive Protein 15.40 mg/dL (0.00-1.30) H 05/17/18 06:07 Total Protein 6.9 g/dL (6.3-8.2) 05/16/18 15:29 Albumin 3.6 g/dL (3.9-5) L 05/16/18 15:29 Albumin/Globulin Ratio 1.1 % 05/16/18 15:29 Lipase 28 units/L (13-60) 05/16/18 15:29 Blood Type O POSITIVE 05/16/18 15:29 Antibody Screen Negative 05/16/18 15:29 - Imaging and Cardiology Chest x-ray: image reviewed (effusion. ) Nutrition/Malnutrition Assess - Attestation Statement I have reviewed and agreed w/ Malnutrition eval & tx plan: Yes
[2018-05-19] MEDS: VANCOMYCIN/NS 1 GM/250 ML 1 GM/250 ML BAG IV SCH ×2 (03:25→11:20)
[2018-05-19] MEDS: ZITHROMAX PO SCH (09:26)
[2018-05-19] MEDS: TAMIFLU PO SCH ×2 (09:27→22:26)
[2018-05-19] MEDS: SODIUM CHLORIDE FLUSH SYRINGE 10 ML IV SCH ×2 (09:27→22:26)
[2018-05-19] MEDS: ROCEPHIN/NS 2 GM/100 ML 2 GM/100 ML BAG IV SCH (10:22)
[2018-05-19] MEDS: NACL 0.45% 1000 ML 1,000 ML IV SCH (10:25)
[2018-05-19] MEDS ORDERED: K-DUR PO ONE (15:16)
--- NOTE | 2018-05-19 15:28 | Progress Note ---
Assessment and Plan Assessment and plan: Patient is a 57 yo man without chronic medical problems who presents with left side pleuritic chest pain, sob and cough. -Sepsis from pneumonia: followed ctx, d/c iv vancomycin -LLL pneumonia: continue iv abx -Nicotine Dependence: Counselled on nicotine cessation. -Diarrhea - If diarrhea persists will order stool and C-diff cultures. Monitor closely. -Hypokalemia: replete and recheck full code dispo: continue inpatient care, Still spike a low grade temp today, d/c on cefti n and tamiflu upon discharge once afebrile for 24 hours, d/c iv vancomycin History Interval history: Patient was seen and examined. Follow-up on current diagnosis of pneumonia. Overnight uneventful. Patient denies any chest pain, shortness breath, nausea/vomiting or severe headaches. Imaging, nursing note, chart, labs and old chart reviewed. Discussed with patient. Still spike a low grade temp today Hospitalist Physical - Physical exam Narrative exam: Gen: WDWN, NAD, Awake, Alert, Orientated HEENT: NCAT, EOMI, PERRL, OP Clear Neck: supple, no adenopathy, no thyromegaly, no JVD CVS/Heart: RRR, normal S1S2, pulses present bilaterally Chest/Lungs: diminished and coarse bilateral, Symmetrical chest expansion, good air entry bilaterally GI/Abdomen: soft, NTND, good bowel sounds, no guarding or rebound /Bladder: no suprapubic tenderness, no CVA or paraspinal tenderness Extermity/Skin: no c/c/e, no obvious rash MSK: FROM x 4 Neuro: CN 2-12 grossly intact, no new focal deficits Psych: calm - Constitutional Vitals: Temp Pulse Resp BP Pulse Ox 99.3 F 82 22 114/82 98 05/19/18 11:22 05/19/18 11:22 05/19/18 11:22 05/19/18 11:22 05/19/18 11:22 Results - Labs CBC & Chem 7: 05/18/18 04:17 05/18/18 04:17 Labs: Laboratory Last Values WBC 6.1 K/mm3 (4.5-11.0) 05/18/18 04:17 RBC 3.71 M/mm3 (3.65-5.03) 05/18/18 04:17 Hgb 11.7 gm/dl (11.8-15.2) L 05/18/18 04:17 Hct 35.2 % (35.5-45.6) L 05/18/18 04:17 MCV 95 fl (84-94) H 05/18/18 04:17 MCH 31 pg (28-32) 05/18/18 04:17 MCHC 33 % (32-34) 05/18/18 04:17 RDW 15.1 % (13.2-15.2) 05/18/18 04:17 Plt Count 169 K/mm3 (140-440) 05/18/18 04:17 [place] % (Auto) Remote [employer] Operator 05/17/18 06:07 Add Manual Diff Complete 05/17/18 06:07 Total Counted 100 05/17/18 06:07 Seg Neuts % (Manual) 73.0 % (40.0-70.0) H 05/17/18 06:07 Band Neutrophils % 4.0 % 05/17/18 06:07 Lymphocytes % (Manual) 7.0 % (13.4-35.0) L 05/17/18 06:07 Reactive Lymphs % (Man) 0 % 05/17/18 06:07 Monocytes % (Manual) 16.0 % (0.0-7.3) H 05/17/18 06:07 Eosinophils % (Manual) 0 % (0.0-4.3) 05/17/18 06:07 Basophils % (Manual) 0 % (0.0-1.8) 05/17/18 06:07 Metamyelocytes % 0 % 05/17/18 06:07 Myelocytes % 0 % 05/17/18 06:07 Promyelocytes % 0 % 05/17/18 06:07 Blast Cells % 0 % 05/17/18 06:07 Nucleated RBC % Not Reportable 05/17/18 06:07 Seg Neutrophils # Man 5.1 K/mm3 (1.8-7.7) 05/17/18 06:07 Band Neutrophils # 0.3 K/mm3 05/17/18 06:07 Lymphocytes # (Manual) 0.5 K/mm3 (1.2-5.4) L 05/17/18 06:07 Abs React Lymphs (Man) 0.0 K/mm3 05/17/18 06:07 Monocytes # (Manual) 1.1 K/mm3 (0.0-0.8) H 05/17/18 06:07 Eosinophils # (Manual) 0.0 K/mm3 (0.0-0.4) 05/17/18 06:07 Basophils # (Manual) 0.0 K/mm3 (0.0-0.1) 05/17/18 06:07 Metamyelocytes # 0.0 K/mm3 05/17/18 06:07 Myelocytes # 0.0 K/mm3 05/17/18 06:07 Promyelocytes # 0.0 K/mm3 05/17/18 06:07 Blast Cells # 0.0 K/mm3 05/17/18 06:07 WBC Morphology Not Reportable 05/17/18 06:07 Hypersegmented Neuts Not Reportable 05/17/18 06:07 Hyposegmented Neuts Not Reportable 05/17/18 06:07 Hypogranular Neuts Not Reportable 05/17/18 06:07 Smudge Cells Not Reportable 05/17/18 06:07 Toxic Granulation Not Reportable 05/17/18 06:07 Toxic Vacuolation Not Reportable 05/17/18 06:07 Dohle Bodies Not Reportable 05/17/18 06:07 Pelger-Huet Anomaly Not Reportable 05/17/18 06:07 Matilda Rods Not Reportable 05/17/18 06:07 Platelet Estimate Consistent w auto 05/17/18 06:07 Clumped Platelets Not Reportable 05/17/18 06:07 Plt Clumps, EDTA Not Reportable 05/17/18 06:07 Large Platelets Not Reportable 05/17/18 06:07 Giant Platelets Not Reportable 05/17/18 06:07 Platelet Satelliting Not Reportable 05/17/18 06:07 Plt Morphology Comment Not Reportable 05/17/18 06:07 RBC Morphology Not Reportable 05/17/18 06:07 Dimorphic RBCs Not Reportable 05/17/18 06:07 Polychromasia Not Reportable 05/17/18 06:07 Hypochromasia 1+ 05/17/18 06:07 Poikilocytosis Not Reportable 05/17/18 06:07 Anisocytosis Not Reportable 05/17/18 06:07 Microcytosis Not Reportable 05/17/18 06:07 Macrocytosis Not Reportable 05/17/18 06:07 Spherocytes Not Reportable 05/17/18 06:07 Pappenheimer Bodies Not Reportable 05/17/18 06:07 Sickle Cells Not Reportable 05/17/18 06:07 Target Cells Not Reportable 05/17/18 06:07 Tear Drop Cells Not Reportable 05/17/18 06:07 Ovalocytes Not Reportable 05/17/18 06:07 Stomatocytes Few 05/16/18 15:29 Helmet Cells Not Reportable 05/17/18 06:07 [place] Bodies Not Reportable 05/17/18 06:07 [place] Rings Not Reportable 05/17/18 06:07 [place] Cells Not Reportable 05/17/18 06:07 Bite Cells Not Reportable 05/17/18 06:07 Crenated Cell Not Reportable 05/17/18 06:07 Elliptocytes Not Reportable 05/17/18 06:07 Acanthocytes (Spur) Not Reportable 05/17/18 06:07 Rouleaux Not Reportable 05/17/18 06:07 Hemoglobin C Crystals Not Reportable 05/17/18 06:07 Schistocytes Not Reportable 05/17/18 06:07 Malaria parasites Not Reportable 05/17/18 06:07 Eliu Bodies Not Reportable 05/17/18 06:07 Hem Pathologist Commnt No 05/17/18 06:07 PT 12.4 Sec. (12.2-14.9) 05/16/18 15:29 INR 0.89 (0.87-1.13) 05/16/18 15:29 APTT 25.4 Sec. (24.2-36.6) 05/16/18 15:29 Sodium 140 mmol/L (137-145) 05/18/18 04:17 Potassium 3.5 mmol/L (3.6-5.0) L 05/18/18 04:17 Chloride 101.7 mmol/L (98-107) 05/18/18 04:17 Carbon Dioxide 25 mmol/L (22-30) 05/18/18 04:17 Anion Gap 17 mmol/L 05/18/18 04:17 BUN 10 mg/dL (9-20) 05/18/18 04:17 Creatinine 0.7 mg/dL (0.8-1.5) L 05/18/18 04:17 Estimated GFR > 60 ml/min 05/18/18 04:17 BUN/Creatinine Ratio 14 % 05/18/18 04:17 Glucose 118 mg/dL (75-100) H 05/18/18 04:17 Calcium 8.3 mg/dL (8.4-10.2) L 05/18/18 04:17 Total Bilirubin 0.70 mg/dL (0.1-1.2) 05/16/18 15:29 AST 20 units/L (5-40) 05/16/18 15:29 ALT 14 units/L (7-56) 05/16/18 15:29 Alkaline Phosphatase 66 units/L (35-129) 05/16/18 15:29 C-Reactive Protein 15.40 mg/dL (0.00-1.30) H 05/17/18 06:07 Total Protein 6.9 g/dL (6.3-8.2) 05/16/18 15:29 Albumin 3.6 g/dL (3.9-5) L 05/16/18 15:29 Albumin/Globulin Ratio 1.1 % 05/16/18 15:29 Lipase 28 units/L (13-60) 05/16/18 15:29 Blood Type O POSITIVE 05/16/18 15:29 Antibody Screen Negative 05/16/18 15:29
[2018-05-20] MEDS: NACL 0.45% 1000 ML 1,000 ML IV SCH (01:23)
[2018-05-20 05:37] LABS: Hematocrit 35.1 % (35.5-45.6); Hemoglobin 11.5 gm/dl (11.8-15.2); Mean Corpuscular HGB Conc 33 % (32-34); Mean Corpuscular Volume 94 fl (84-94); Platelet Count 323 K/mm3 (140-440); Red Blood Count 3.74 M/mm3 (3.65-5.03)
[2018-05-20 05:49] LABS: BUN/Creatinine Ratio 13; Blood Urea Nitrogen 8 mg/dL (9-20); Calcium 8.2 mg/dL (8.4-10.2); Hemolysis Index 4
[2018-05-20] MEDS: ZITHROMAX PO SCH (10:28)
[2018-05-20] MEDS: TAMIFLU PO SCH (10:28)
[2018-05-20] MEDS: ROCEPHIN/NS 2 GM/100 ML 2 GM/100 ML BAG IV SCH (10:28)
[2018-05-20] MEDS: SODIUM CHLORIDE FLUSH SYRINGE 10 ML IV SCH (10:29)
[2018-05-20 12:33] VITALS: BP 124/80
--- NOTE | 2018-05-20 14:33 | Discharge Summary ---
Providers - Providers Date of Admission: 05/16/18 22:32 Date of discharge: 05/20/18 Attending physician: ELIZABETH FARRAR 05/17/18 09:52 Consult to Physician [CONS] Routine Comment: Consulting Provider: JACOB BUTCHER Physician Instructions: Reason For Exam: sepsis Primary care physician: RESUME WRITER Hospitalization Condition: Stable Hospital course: Patient is a 57 yo man without chronic medical problems who presents with left side pleuritic chest pain, sob and cough. -Sepsis from pneumonia: followed ctx, d/c iv vancomycin -LLL pneumonia: continue iv abx -Nicotine Dependence: Counselled on nicotine cessation. -Diarrhea no cdiffe sent -Hypokalemia: replete and recheck full code Dispo: home Disposition: DC- TO HOME OR SELFCARE Time spent for discharge: 32 minutes Core Measure Documentation - Palliative Care Palliative Care/ Comfort Measures: Not Applicable - Core Measures Any of the following diagnoses?: none - VTE Discharge Requirements Deep Vein Thrombosis/Pulmonary Embolism Present on Admission: No Has pt received <5 days of overlap therapy or INR<2.0: No Anticoagulant overlap therapy prescribed at discharge: No Contraindication No Overlap Therapy order at DC: Not Indicated Exam - Physical Exam Narrative exam: Gen: WDWN, NAD, Awake, Alert, Orientated HEENT: NCAT, EOMI, PERRL, OP Clear Neck: supple, no adenopathy, no thyromegaly, no JVD CVS/Heart: RRR, normal S1S2, pulses present bilaterally Chest/Lungs: diminished and coarse bilateral, Symmetrical chest expansion, good air entry bilaterally GI/Abdomen: soft, NTND, good bowel sounds, no guarding or rebound /Bladder: no suprapubic tenderness, no CVA or paraspinal tenderness Extermity/Skin: no c/c/e, no obvious rash MSK: FROM x 4 Neuro: CN 2-12 grossly intact, no new focal deficits Psych: calm - Constitutional Vitals: Temp Pulse Resp BP Pulse Ox 99.5 F 77 20 124/80 97 05/20/18 11:24 05/20/18 11:24 05/20/18 11:24 05/20/18 11:24 05/20/18 11:24 Plan Activity: other (no strenous activity unless cleared by pcp) Diet: low salt Follow up with: PRIMARY CAREMD [Primary Care Provider] - 3-5 Days JACOB BUTCHER MD [Staff Physician] - 7 Days Forms: Accompanied Note Prescriptions: cefUROXime [Ceftin] 500 mg PO BID #10 tablet Oseltamivir Phosphate [Tamiflu] 75 mg PO BID #4 capsule
== END 2018-05-20 16:30 | disposition home or self-care (01) | DRG 871 ==
LOC: ED 15:04 → 3A 22:32
PROVIDERS: ADMIT Internal Medicine; ATTEND Internal Medicine
DX: A41.9 Sepsis, unspecified organism (principal); J18.1 Lobar pneumonia, unspecified organism; R04.2 Hemoptysis; F17.200 Nicotine dependence, unspecified, uncomplicated; R09.1 Pleurisy; E87.6 Hypokalemia; Z88.5 Allergy status to narcotic agent; Z71.6 Tobacco abuse counseling; Z82.49 Family history of ischemic heart disease and other diseases of the circulatory system; Z79.899 Other long term (current) drug therapy
CPT/HCPCS: 36415; 71046; 80048; 80053; 80202; 83690; 83735; 85007; 85025; 85027; 85610; 85730; 86140; 86850; 86900; 86901; 87040; 87070; 87116; 87205; 93005; 93010; 96374; 96375; 99406; G0378; J0696; J1885; J1956; J3370; J7030; J7040

== ENCOUNTER 2019-04-30 09:59 | Emergency (ER) | payer SELFPAY ==
[2019-04-30 10:12] VITALS: BP 138/92
--- NOTE | 2019-04-30 11:33 | Emergency Department Report ---
Minor Respiratory - HPI Chief Complaint: Eye Problems Stated Complaint: LT EYE PAIN Time Seen by Provider: 04/30/19 11:29 Duration: 3 Days Pain Location: Chest, Other Severity: mild Minor Respiratory: Yes Able to Tolerate Fluids, Yes Cough, No Rhinorrhea, No Sore Throat, No Ear Pain, No Sick Contacts, No Hemoptysis, No Chest Pain, No Shortness of Breath, No Fever Other History: 58 yo comes to ER with cough and left eye drainage. Smoker. No fever or chills. No chest pain or sob. pmh. none. psh. none. rx. none ED Review of Systems ROS: Stated complaint: LT EYE PAIN Other details as noted in HPI Comment: All other systems reviewed and negative ED Past Medical Hx - Past Medical History Previous Medical History?: No Hx Congestive Heart Failure: No Hx Diabetes: No Hx Asthma: No Hx COPD: No - Surgical History Past Surgical History?: No - Family History Family history: no significant - Social History Smoking Status: Current Every Day Smoker Substance Use Type: None - Medications Home Medications: Home Medications Medication Instructions Recorded Confirmed Last Taken Type Azithromycin [Zithromax Z-LEONARDA] 250 mg PO DAILY #6 tablet 04/30/19 Unknown Rx Fluticasone [Flonase] 1 spray NS QDAY #1 bottle 04/30/19 Unknown Rx Polymyxin B Sulf/Trimethoprim 2 drop OP Q4H #1 each 04/30/19 Unknown Rx [Polytrim Eye Drops] predniSONE [Deltasone] 20 mg PO DAILY #5 tablet 04/30/19 Unknown Rx Minor Respiratory Exam - Exam General: Vital signs noted. No distress. Alert and acting appropriately. l eye mild swelling yellow drainage mild conjunctivitis eoms intact vision unchanged no eye pain no trauma matted in am when he wakes up no jvd no edema HEENT: Yes Pharyngeal Erythema, Yes Moist Mucous Membranes, No Pharyngeal Exudates, No Rhinorrhea, No Conjuctival Injection, No Frontal Tenderness, No Maxillary Tenderness Ear: Neither TM Bulge, Neither TM Erythema, Neither EAC Pain, Neither EAC Discharge Neck: Yes Supple, No Adenopathy Lungs: Yes Good Air Exchange, Yes Ronchi (clear with cough), No Wheezes Heart: Yes Regular, No Murmur Abdomen: No Tenderness Skin: No Rash Neurologic: Alert and oriented, no deficits. Musculoskeletal: Unremarkable. ED Course Vital Signs 04/30/19 10:11 Temperature 98.9 F Pulse Rate 79 Respiratory 16 Rate Blood Pressure 138/92 O2 Sat by Pulse 97 Oximetry ED Medical Decision Making - Medical Decision Making simple uri no trauma started as uri several days ago cough smoker no fever or chills rhonchi that clears with cough yellow sputum yellow drainage from eye Vital Signs 04/30/19 10:11 Temperature 98.9 F Pulse Rate 79 Respiratory 16 Rate Blood Pressure 138/92 O2 Sat by Pulse 97 Oximetry - Differential Diagnosis ro pna/periorbidal cellulitis/eye trauma Critical care attestation.: If time is entered above; I have spent that time in minutes in the direct care of this critically ill patient, excluding procedure time. ED Disposition Clinical Impression: URTI (acute upper respiratory infection), Conjunctivitis, Smoker Disposition: - TO HOME OR SELFCARE Is pt being admited?: No Does the pt Need Aspirin: No Condition: Stable Instructions: Conjunctivitis (ED) Additional Instructions: meds as ordered today follow up with pcp in 48 hours for recheck warm compresses to eye diet and activity as tolerated decrease or eliminate your smoking Prescriptions: predniSONE [Deltasone] 20 mg PO DAILY #5 tablet Fluticasone [Flonase] 1 spray NS QDAY #1 bottle Polymyxin B Sulf/Trimethoprim [Polytrim Eye Drops] 2 drop OP Q4H #1 each Azithromycin [Zithromax Z-LEONARDA] 250 mg PO DAILY #6 tablet Referrals: MARLEE TYLER MD [Staff Physician] - 3-5 Days Time of Disposition: 11:31
== END 2019-04-30 11:33 | disposition home or self-care (01) ==
LOC: ED 09:59
DX: H10.9 Unspecified conjunctivitis (principal); J06.9 Acute upper respiratory infection, unspecified; F17.200 Nicotine dependence, unspecified, uncomplicated; Z88.5 Allergy status to narcotic agent

== ENCOUNTER 2019-07-17 13:52 | Emergency (ER) | payer SELFPAY ==
--- NOTE | 2019-07-17 15:40 | Event Note ---
ED Screening Note Date of service: 07/17/19 Time: 15:39 ED Screening Note: 49 y o male presents withprod cough green x 3 days states today noticed blood in his sputum PMH:None This initial assessment/diagnostic orders/clinical plan/treatment(s) is/are subject to change based on patients health status, clinical progression and re- assessment by fellow clinical providers in the ED. Further treatment and workup at subsequent clinical providers discretion. Patient/guardian urged not to elope from the ED as their condition may be serious if not clinically assessed and managed. Initial orders include: cxr acc eval
[2019-07-17 15:42] VITALS: BP 165/94
--- NOTE | 2019-07-17 16:25 | XRay Report ---
CHEST 2 VIEWS INDICATION: cough. COMPARISON: 05/16/2018 FINDINGS: Support devices: None. Heart: Within normal limits. Lungs/pleura: No acute air space or interstitial disease. Left lung infiltrate has resolved since the previous exam. No pneumothorax. Additional findings: None. IMPRESSION: No acute findings. Signer Name: Joce Leigh Jr, MD Signed: 07/17/2019 4:21 PM Workstation Name: [id number]
--- NOTE | 2019-07-17 20:20 | Emergency Department Report ---
- General Chief Complaint: Upper Respiratory Infection Stated Complaint: CLEARED THROAT AND BLOOD CAME OUT Time Seen by Provider: 07/17/19 19:32 Source: patient Mode of arrival: Ambulatory Limitations: No Limitations - History of Present Illness Initial Comments: Mr. Lee is s 59 y o male presents with prod cough green x 3 days. Hx of pnuemonia 2 months ago. Pt denies sob, no wheezing, cough is worse at night. symptoms are relieved by nothing, symptoms are exacerbated by activity. There is no cp , no dizziness, no light headedness, no n/v, no diaphoresis. MD Complaint: fever, cough, sore throat, rhinorrhea, nasal congestion, sinus pain Onset/Timin -: days(s) Severity: moderate Severity scale (0 -10): 5 Quality: aching Consistency: constant Improves With: nothing Worsens With: activity Context: sick contacts Associated Symptoms: fever, chills, rhinorrhea, nasal congestion, sore throat, cough, ear pain. denies: headache, chest pain, shortness of breath, nausea, vomiting - Related Data Previous Rx's Medication Instructions Recorded Last Taken Type Azithromycin [Zithromax Z-LEONARDA] 250 mg PO DAILY #6 tablet 04/30/19 Unknown Rx Fluticasone [Flonase] 1 spray NS QDAY #1 bottle 04/30/19 Unknown Rx Polymyxin B Sulf/Trimethoprim 2 drop OP Q4H #1 each 04/30/19 Unknown Rx [Polytrim Eye Drops] predniSONE [Deltasone] 20 mg PO DAILY #5 tablet 04/30/19 Unknown Rx Amoxicillin/Potassium Clav 1 each PO BID 10 Days #20 tablet 07/17/19 Unknown Rx [Augmentin 875-125 Tablet] predniSONE [Deltasone] 40 mg PO QDAY 5 Days #10 tab 07/17/19 Unknown Rx Allergies Allergy/AdvReac Type Severity Reaction Status Date / Time oxycodone [From Percocet] Allergy Hives Verified 04/11/18 09:57 ED Review of Systems ROS: Stated complaint: CLEARED THROAT AND BLOOD CAME OUT Other details as noted in HPI Constitutional: chills, fever Eyes: denies: eye pain, eye discharge, vision change ENT: ear pain, throat pain, congestion Respiratory: cough. denies: shortness of breath, wheezing Cardiovascular: denies: chest pain, palpitations Endocrine: no symptoms reported Gastrointestinal: denies: abdominal pain, nausea, vomiting, diarrhea Genitourinary: denies: urgency, dysuria Musculoskeletal: denies: back pain, joint swelling, arthralgia Skin: denies: rash, lesions Neurological: denies: headache, weakness, paresthesias Psychiatric: denies: anxiety, depression Hematological/Lymphatic: denies: easy bleeding, easy bruising ED Past Medical Hx - Past Medical History Previous Medical History?: No Hx Congestive Heart Failure: No Hx Diabetes: No Hx Asthma: No Hx COPD: No - Social History Smoking Status: Current Every Day Smoker Substance Use Type: None - Medications Home Medications: Home Medications Medication Instructions Recorded Confirmed Last Taken Type Azithromycin [Zithromax Z-LEONARDA] 250 mg PO DAILY #6 tablet 04/30/19 Unknown Rx Fluticasone [Flonase] 1 spray NS QDAY #1 bottle 04/30/19 Unknown Rx Polymyxin B Sulf/Trimethoprim 2 drop OP Q4H #1 each 04/30/19 Unknown Rx [Polytrim Eye Drops] predniSONE [Deltasone] 20 mg PO DAILY #5 tablet 04/30/19 Unknown Rx Amoxicillin/Potassium Clav 1 each PO BID 10 Days #20 tablet 07/17/19 Unknown Rx [Augmentin 875-125 Tablet] predniSONE [Deltasone] 40 mg PO QDAY 5 Days #10 tab 07/17/19 Unknown Rx ED Physical Exam - General Limitations: No Limitations General appearance: alert, in no apparent distress - Head Head exam: Present: atraumatic, normocephalic - Eye Eye exam: Present: normal appearance, PERRL, EOMI Pupils: Present: normal accommodation - ENT ENT exam: Present: mucous membranes moist, normal external ear exam, other (bilat maxillary tenderness, noted clear rhinorrhea no swelling no erythema ) - Expanded ENT Exam Expanded Ear exam: Present: normal external inspection TM/Canal exam: Erythema: Right TM, Left TM Throat exam: Positive: tonsillar erythema, other (uvula midline no exudate no lesions. no stridor no wheezing ). Negative: tonsillomegaly, tonsillar exudate, R peritonsillar mass, L peritonsillar mass - Neck Neck exam: Present: normal inspection, full ROM, lymphadenopathy. Absent: tenderness, thyromegaly - Respiratory Respiratory exam: Present: normal lung sounds bilaterally. Absent: respiratory distress, wheezes, stridor, chest wall tenderness - Cardiovascular Cardiovascular Exam: Present: regular rate, normal rhythm, normal heart sounds. Absent: systolic murmur, diastolic murmur, rubs, gallop - GI/Abdominal GI/Abdominal exam: Present: soft, normal bowel sounds. Absent: distended, tenderness, bruit, hernia - Rectal Rectal exam: Present: deferred - Extremities Exam Extremities exam: Present: normal inspection, full ROM, normal capillary refill - Back Exam Back exam: Present: normal inspection, full ROM. Absent: tenderness - Neurological Exam Neurological exam: Present: alert, oriented X3, CN II-XII intact, normal gait, reflexes normal. Absent: motor sensory deficit - Psychiatric Psychiatric exam: Present: normal affect, normal mood - Skin Skin exam: Present: warm, dry, intact, normal color. Absent: rash ED Course Vital Signs 07/17/19 15:39 Temperature 99.4 F Pulse Rate 85 Respiratory 20 Rate Blood Pressure 165/94 O2 Sat by Pulse 100 Oximetry ED Medical Decision Making - Radiology Data Radiology results: report reviewed, image reviewed Findings Reporting MD: Joce Leigh Dictation Time: July 17, 2019 15:21 Multiple Drum Sander Helper: Not available Methods Analyst Data Processing Date: CHEST 2 VIEWS INDICATION: cough. COMPARISON: 05/16/2018 FINDINGS: Support devices: None. Heart: Within normal limits. Lungs/pleura: No acute air space or interstitial disease. Left lung infiltrate has resolved since the previous exam. No pneumothorax. Additional findings: None. IMPRESSION: No acute findings. Signer Name: Joce Leigh Jr, MD Signed: 07/17/2019 3:21 PM Workstation Name: [id number] - Medical Decision Making Chest x-ray no infiltrates no opacities., Noted sinus pain maxillary tenderness, bilateral TM erythema and pain we will treat for sinusitis with Augmentin, prednisone, patient will continue current albuterol as needed, NSAIDs as needed pain and fever. There is no respiratory distress, wheezing, stridor, no chest pain or shortness of breath. Patient will be DC'd home in stable condition at this time. patient verbalizes understanding of same Critical care attestation.: If time is entered above; I have spent that time in minutes in the direct care of this critically ill patient, excluding procedure time. ED Disposition Clinical Impression: Sinusitis Qualifiers: Sinusitis location: maxillary Chronicity: acute Recurrence: non-recurrent Qualified Code(s): J01.00 - Acute maxillary sinusitis, unspecified Disposition: TO HOME OR SELFCARE Is pt being admited?: No Does the pt Need Aspirin: No Condition: Stable Instructions: Acute Bacterial Rhinosinusitis (ED), Acute Bronchitis (ED) Prescriptions: Amoxicillin/Potassium Clav [Augmentin 875-125 Tablet] 1 each PO BID 10 Days #20 tablet predniSONE [Deltasone] 40 mg PO QDAY 5 Days #10 tab Referrals: BETINA BOWMAN MD [Staff Physician] - 3-5 Days Forms: Work/School Release Form(ED) Time of Disposition: 20:36
[2019-07-17] MEDS ORDERED: IBUPROFEN 800 MG TAB PO ONE (20:23)
[2019-07-17] MEDS ORDERED: predniSONE 20 MG TAB PO ONE (20:23)
[2019-07-17] MEDS ORDERED: AMOXICILLIN/K CLAV 875/125MG TAB PO ONE (20:23)
[2019-07-17] MEDS ORDERED: diphenhydrAMINE 25 MG CAP PO ONE (20:24)
== END 2019-07-17 20:52 | disposition home or self-care (01) ==
LOC: ED 13:52
DX: J32.9 Chronic sinusitis, unspecified (principal); R05 Cough; R50.9 Fever, unspecified; J34.89 Other specified disorders of nose and nasal sinuses; F17.200 Nicotine dependence, unspecified, uncomplicated; Z79.899 Other long term (current) drug therapy; Z88.8 Allergy status to other drugs, medicaments and biological substances
CPT/HCPCS: 71046; 99283; J7512

== ENCOUNTER 2020-03-11 10:42 | Emergency (ER) | payer SELFPAY ==
--- NOTE | 2020-03-11 13:02 | Emergency Department Report ---
- General Chief Complaint: Upper Respiratory Infection Stated Complaint: VOMIT BLOOD Time Seen by Provider: 03/11/20 12:42 Source: patient Mode of arrival: Ambulatory Limitations: No Limitations - History of Present Illness Initial Comments: 59-year-old male smoker with no significant past medical history presents to the hospital planing of coughing up streaks of blood for last 2 to 3 days. Sputum was initially white it then turned yellow-tinged with blood. No mitchell hemoptysi s reported. Patient denies fever, shortness of breath, wheezing, chest pain, history of PE/DVT, calf tenderness, leg edema, loss of sense of taste or smell. Patient last tested negative for Covid 2 weeks ago. He has similar symptoms in the past secondary to bronchitis. He denies vomiting blood. Patient does report a significant weight loss - Related Data Previous Rx's Medication Instructions Recorded Last Taken Type Azithromycin [Zithromax Z-LEONARDA] 250 mg PO DAILY #6 tablet 04/30/19 Unknown Rx Fluticasone [Flonase] 1 spray NS QDAY #1 bottle 04/30/19 Unknown Rx Polymyxin B Sulf/Trimethoprim 2 drop OP Q4H #1 each 04/30/19 Unknown Rx [Polytrim Eye Drops] predniSONE [Deltasone] 20 mg PO DAILY #5 tablet 04/30/19 Unknown Rx Amoxicillin/Potassium Clav 1 each PO BID 10 Days #20 tablet 07/17/19 Unknown Rx [Augmentin 875-125 Tablet] Apixaban [Eliquis] 10 mg PO Q12HR 30 Days tablet 03/11/20 Unknown Rx Benzonatate [Tessalon Perles] 100 mg PO Q8HR PRN #20 capsule 03/11/20 Unknown Rx Potassium Chloride [K-Dur] 20 meq PO BID #4 tab 03/11/20 Unknown Rx levoFLOXacin [Levaquin TAB] 750 mg PO ONCE #5 tablet 03/11/20 Unknown Rx Allergies Allergy/AdvReac Type Severity Reaction Status Date / Time oxycodone [From Percocet] Allergy Hives Verified 03/11/20 11:43 ED Review of Systems ROS: Stated complaint: VOMIT BLOOD Other details as noted in HPI Comment: All other systems reviewed and negative ED Past Medical Hx - Past Medical History Hx Congestive Heart Failure: No Hx Diabetes: No Hx Asthma: No Hx COPD: No - Social History Smoking Status: Current Every Day Smoker Substance Use Type: None - Medications Home Medications: Home Medications Medication Instructions Recorded Confirmed Last Taken Type Azithromycin [Zithromax Z-LEONARDA] 250 mg PO DAILY #6 tablet 04/30/19 Unknown Rx Fluticasone [Flonase] 1 spray NS QDAY #1 bottle 04/30/19 Unknown Rx Polymyxin B Sulf/Trimethoprim 2 drop OP Q4H #1 each 04/30/19 Unknown Rx [Polytrim Eye Drops] predniSONE [Deltasone] 20 mg PO DAILY #5 tablet 04/30/19 Unknown Rx Amoxicillin/Potassium Clav 1 each PO BID 10 Days #20 tablet 07/17/19 Unknown Rx [Augmentin 875-125 Tablet] Apixaban [Eliquis] 10 mg PO Q12HR 30 Days tablet 03/11/20 Unknown Rx Benzonatate [Tessalon Perles] 100 mg PO Q8HR PRN #20 capsule 03/11/20 Unknown Rx Potassium Chloride [K-Dur] 20 meq PO BID #4 tab 03/11/20 Unknown Rx levoFLOXacin [Levaquin TAB] 750 mg PO ONCE #5 tablet 03/11/20 Unknown Rx ED Physical Exam - General Limitations: No Limitations - Other Other exam information: General: No acute distress Head: Atraumatic Eyes: normal appearance ENT: Moist mucous membranes Neck: Normal appearance, no midline tenderness Chest: Clear to auscultation bilaterally, no tachypnea or accessory muscle use CV: Regular rate and rhythm Abdomen: Soft, normal bowel sounds, nontender, nondistended, no rebound or guarding Back: Normal inspection Extremity: Normal inspection, full range of motion, no calf tenderness or leg edema Neuro: Alert O x 3, no facial asymmetry, speech clear, no gross motor sensory d eficit Psych: Appropriate behavior Skin: No rash ED Course Vital Signs 03/11/20 03/11/20 11:45 15:05 Temperature 98.5 F Pulse Rate 70 68 Respiratory 18 Rate Blood Pressure 137/92 Blood Pressure 149/91 [Left] O2 Sat by Pulse 98 Oximetry ED Medical Decision Making - Lab Data Result diagrams: 03/11/20 12:25 03/11/20 12:25 Lab Results 03/11/20 03/11/20 Range/Units 12:25 12:25 WBC 4.4 L (4.5-11.0) K/mm3 RBC 3.52 L (3.65-5.03) M/mm3 Hgb 11.7 L (11.8-15.2) gm/dl Hct 34.3 L (35.5-45.6) % MCV 97 H (84-94) fl MCH 33 H (28-32) pg MCHC 34 (32-34) % RDW 13.6 (13.2-15.2) % Plt Count 167 (140-440) K/mm3 Lymph % (Auto) 20.7 (13.4-35.0) % [place] % (Auto) 12.7 H (0.0-7.3) % Eos % (Auto) 0.4 (0.0-4.3) % Baso % (Auto) 1.1 (0.0-1.8) % Lymph # (Auto) 0.9 L (1.2-5.4) K/mm3 [place] # (Auto) 0.6 (0.0-0.8) K/mm3 Eos # (Auto) 0.0 (0.0-0.4) K/mm3 Baso # (Auto) 0.0 (0.0-0.1) K/mm3 Seg Neutrophils % 65.1 (40.0-70.0) % Seg Neutrophils # 2.9 (1.8-7.7) K/mm3 Sodium 145 (137-145) mmol/L Potassium 3.1 L (3.6-5.0) mmol/L Chloride 101.6 (98-107) mmol/L Carbon Dioxide 26 (22-30) mmol/L Anion Gap 21 mmol/L BUN 9 (9-20) mg/dL Creatinine 0.6 L (0.8-1.3) mg/dL Estimated GFR > 60 ml/min BUN/Creatinine Ratio 15 % Glucose 86 (75-100) mg/dL Calcium 8.8 (8.4-10.2) mg/dL - Radiology Data Radiology results: report reviewed CHEST PA AND LATERAL VIEWS INDICATION: coughing up blood. COMPARISON: 07/17/2019 FINDINGS: Support devices: None. Heart: Within normal limits. Lungs/Pleura: No acute pulmonary or pleural findings. Lungs remain hyperexpanded. IMPRESSION: 1. No acute findings. CT angio chest INDICATION / CLINICAL INFORMATION: coughing up blood, smoker. TECHNIQUE: Axial CT images were obtained through the chest after injection of IV contrast. 3 plane MIP and/or 3D reconstructions were produced. All CT scans at this location are performed using CT dose reduction for ALARA by means of automated exposure control. COMPARISON: Xray may 16, 2018 and july 17, 2019 FINDINGS: PULMONARY ARTERIES: Filling defects within the posterior basal subsegmental lower lobe pulmonary arteries for example on image 3 26-3 46 of series 3. Left ventricular 2 right ventricular ratio is normal. HEART: No significant abnormality. MEDIASTINUM / DARRIUS: No significant abnormality. LUNGS: Consolidation in the left lower lobe. The consolidation is similar to prior x-ray given the differences in technique on May 16, 2018. This consolidation did clear on x- ray July 17, 2019. Thin walled bilateral air-filled cysts of differing sizes throughout the lung parenchyma. No pleural effusion. No pneumothorax. ADDITIONAL FINDINGS: None. UPPER ABDOMEN: No acute findings. SKELETAL STRUCTURES: No significant osseous abnormality. IMPRESSION: 1. Pulmonary emboli are seen within the left lower lobe subsegmental branches. No evidence for right heart strain. 2. Consolidation left lower lobe is nonspecific but most likely infectious in etiology. - Medical Decision Making Patient presents to the hospital with cough with blood-streaked sputum. CT positive for possible left lower lobe pneumonia and pulmonary emboli. Patient treated with Rocephin, azithromycin, and Lovenox initiated. No signs of hypoxia or right heart strain at this time. Patient will be admitted to the hospital service for further treatment Case discussed initiated a review with him when I discussed admission to patient he declines admission at this time. He will sign out AGAINST MEDICAL ADVICE. I Explained my concerns for decreasing oxygen saturation, shortness of breath, a nd likely to increase mobility and mortality. Patient is otherwise looks good without hypoxia, tachypnea, and chest pain. He will be signed out AGAINST MEDICAL ADVICE with a good Rx card, prescription for Levaquin, and Eliquis discount card to make his medication more affordable. Critical Care Time: No Critical care attestation.: If time is entered above; I have spent that time in minutes in the direct care of this critically ill patient, excluding procedure time. ED Disposition Clinical Impression: Hypokalemia, COPD (chronic obstructive pulmonary disease), Smoker, Pneumonia, Pulmonary emboli Disposition: LEFT AGAINST MED ADVICE Is pt being admited?: No Does the pt Need Aspirin: No Condition: Stable Instructions: Community-acquired Pneumonia (ED), How to Stop Smoking (ED), Pulmonary Embolism (GEN), Hypokalemia (ED) Additional Instructions: You are signing out AGAINST MEDICAL ADVICE. If symptoms worsen please come to the ER as your discharge instructions indicate. You have been provided a good Rx card and Eliquis starter pack prescription card to make your medications more affordable. I recommend that you also received outpatient coronavirus testing. Follow-up with your doctor or the doctor/clinic provided Prescriptions: Apixaban [Eliquis] 10 mg PO Q12HR 30 Days tablet Potassium Chloride [K-Dur] 20 meq PO BID #4 tab levoFLOXacin [Levaquin TAB] 750 mg PO ONCE #5 tablet Benzonatate [Tessalon Perles] 100 mg PO Q8HR PRN #20 capsule PRN Reason: Cough Referrals: [facility] [Provider Group] - 3-5 Days (Primary care clinic) ASIM MICHAEL MD [Staff Physician] - 3-5 Days (Lung specialist) NILA CORDOVA MD [Staff Physician] - 3-5 Days (Primary care doctor) Forms: AMA Form
[2020-03-11 13:07] LABS: Basophils % (Auto) 1.1 % (0.0-1.8); Eosinophils % (Auto) 0.4 % (0.0-4.3); Hematocrit 34.3 % (35.5-45.6); Hemoglobin 11.7 gm/dl (11.8-15.2); Lymphocytes # (Auto) 0.9 K/mm3 (1.2-5.4); Lymphocytes % (Auto) 20.7 % (13.4-35.0); Mean Corpuscular HGB Conc 34 % (32-34); Mean Corpuscular Volume 97 fl (84-94); Monocytes # (Auto) 0.6 K/mm3 (0.0-0.8); Monocytes % (Auto) 12.7 % (0.0-7.3); Platelet Count 167 K/mm3 (140-440); Red Blood Count 3.52 M/mm3 (3.65-5.03); Red Cell Distribution Width 13.6 % (13.2-15.2)
[2020-03-11 13:28] LABS: Blood Urea Nitrogen 9 mg/dL (9-20); Calcium 8.8 mg/dL (8.4-10.2); Hemolysis Index 2
[2020-03-11 13:29] LABS: BUN/Creatinine Ratio 15
--- NOTE | 2020-03-11 13:31 | XRay Report ---
CHEST PA AND LATERAL VIEWS INDICATION: coughing up blood. COMPARISON: 07/17/2019 FINDINGS: Support devices: None. Heart: Within normal limits. Lungs/Pleura: No acute pulmonary or pleural findings. Lungs remain hyperexpanded. IMPRESSION: 1. No acute findings. Signer Name: Donovan Markham MD Signed: 03/11/2020 1:27 PM Workstation Name: [id number]
[2020-03-11] MEDS ORDERED: POTASSIUM CHLORIDE ER 20 MEQ TAB PO ONE (13:34)
[2020-03-11 15:07] VITALS: BP 149/91
[2020-03-11] MEDS ORDERED: ENOXAPARIN 100 MG/1 ML INJ SUB-Q ONE (15:38)
--- NOTE | 2020-03-11 15:43 | Cat Scan Report ---
CT angio chest INDICATION / CLINICAL INFORMATION: coughing up blood, smoker. TECHNIQUE: Axial CT images were obtained through the chest after injection of IV contrast. 3 plane MIP and/or 3D reconstructions were produced. All CT scans at this location are performed using CT dose reduction f or ALARA by means of automated exposure control. COMPARISON: Xray may 16, 2018 and july 17, 2019 FINDINGS: PULMONARY ARTERIES: Filling defects within the posterior basal subsegmental lower lobe pulmonary [place] for example on image 3 [id number] 46 of series 3. Left ventricular 2 right ventricular ratio is normal . HEART: No significant abnormality. MEDIASTINUM / DARRIUS: No significant abnormality. LUNGS: Consolidation in the left lower lobe. The consolidation is similar to prior x-ray given the di fferences in technique on May 16, 2018. This consolidation did clear on x-ray July 17, 2019. Thin walled bilateral air-filled cysts of differing sizes throughout the lung parenchyma. No pleural eff usion. No pneumothorax. ADDITIONAL FINDINGS: None. UPPER ABDOMEN: No acute findings. SKELETAL STRUCTURES: No significant osseous abnormality. IMPRESSION: 1. Pulmonary emboli are seen within the left lower lobe subsegmental branches. No evidence for right heart strain. 2. Consolidation left lower lobe is nonspecific but most likely infectious in etiology. I informed Dr. Nichols at 2:30 Signer Name: Ilya Ferreira MD Signed: 03/11/2020 3:38 PM Workstation Name: [id number]
[2020-03-11] MEDS ORDERED: cefTRIAXone/NS 2 GM/100 ML 2 GM/100 ML BAG IV SCH (16:00)
[2020-03-11] MEDS ORDERED: levoFLOXacin 750 MG TAB PO ONE (16:56)
[2020-03-11] MEDS ORDERED: AZITHROMYCIN 500 MG in SODIUM CHLORIDE 0.9% 250ML 250 ML IV SCH (17:00)
[2020-03-11] MEDS ORDERED: APIXABAN 5 MG TAB PO SCH (22:00)
== END 2020-03-11 17:00 | disposition left against medical advice (07) ==
LOC: ED 10:42
DX: J44.9 Chronic obstructive pulmonary disease, unspecified (principal); I26.99 Other pulmonary embolism without acute cor pulmonale; E87.6 Hypokalemia; F17.200 Nicotine dependence, unspecified, uncomplicated; J18.9 Pneumonia, unspecified organism; Z88.8 Allergy status to other drugs, medicaments and biological substances; Z79.899 Other long term (current) drug therapy
CPT/HCPCS: 36415; 71046; 71275; 80048; 85025; 99284; Q9967; J0456; J7050